=== PATIENT | female | born 1955 | race Caucasian/White ===

== ENCOUNTER 2017-03-08 07:20 | Emergency (ER) | payer OTHER ==
[2017-03-08 07:23] VITALS: BP 146/67; PULSE 112; RESP 20; TEMP 98.8; O2SAT 94
[2017-03-08 07:45] VITALS: BP 167/78; PULSE 107; RESP 22; O2SAT 97
--- NOTE | 2017-03-08 07:48 | PD ---
HPI Chief Complaint: cough Time Seen by Provider: 07:32 Travel History International Travel<30 days: No Contact w/Intl Traveler<30days: No History of Present Illness HPI 61-year-old female presents with productive cough that developed over the weekend after she had a patient with productive cough that coughed and her face while she was at work a couple days before this. She states her cough has progressed and she has just been generally ill feeling so she elected to check and given a couple years ago she had pneumonia. She states since then she has quit smoking. She denies any fever or other significant complaints other than sometimes it hurts when she coughs. She states no specific modifying factors otherwise. She states she worked overnight in [employer] and took her medication in the evening. She states she is known to have tachycardia and that is why she is on the Cardizem but no history of atrial fibrillation. Quality is productive. Severity is frequent per patient. PFSH Past Medical History Hypertension: Yes (and sinus tachycardia) Past Surgical History Section: Yes Social History Alcohol Use: No Tobacco Use: No (quit couple years ago) Substance Use: No Allergies-Medications (Allergen,Severity, Reaction): Coded Allergies: No Known Allergies (Unverified , 03/08/17) Review of Systems Except as stated in HPI: all other systems reviewed are Neg Physical Exam Narrative General: No apparent distress, well appearing ENT: mmm Neck: Neck is supple, no meningeal signs, trachea is midline Cardiovascular: Regular rate and rhythm Lungs: No increased respiratory effort noted, CTA bilaterally Extremities: No edema Neuro: Awake, motor and sensation grossly intact, normal speech Data Data Last Documented VS Vital Signs Date Time Temp Pulse Resp B/P (MAP) Pulse Ox O2 Delivery O2 Flow Rate FiO2 03/08/17 08:00 102 20 97 Room Air 03/08/17 08:00 167/78 (107) 03/08/17 07:23 98.8 Orders Orders Chest, Pa & Lat (03/08/17 ) [facility] Medical Decision Making Medical Screen Exam Complete: Yes Emergency Medical Condition: Yes Medical Record Reviewed: Yes (past history confirmed) Interpretation(s) cxr no acute Differential Diagnosis Pneumonia, URI, costochondritis Narrative Course Lengthy discussion with patient and she agrees to limited workup with chest x- ray and reevaluation cxr no acute, Patient denies any new complaints and agrees to no further testing here and likely viral infection. Patient happy with care, all questions answered. Patient knows that follow up is incumbent on them and to return to the emergency room immediately if new or worsening symptoms develop. Patient given strict return precautions, vitals reviewed and are normal, agrees to further workup as an outpatient. Diagnosis Primary Impression: Upper respiratory infection Qualified Codes: J06.9 - Acute upper respiratory infection, unspecified Patient Instructions: General Instructions, Moderate Sedation in Children (ED) Additional Instructions: return as needed, follow with primary for recheck, continue supportive care Med/Other Pt SpecificInfo: No Change to Meds Disposition: 01 DISCHARGE HOME Condition: Stable Pretty Elmore MD Mar 08, 2017 07:48
[2017-03-08 08:00] VITALS: BP 167/78; PULSE 102; RESP 22; O2SAT 97
--- NOTE | 2017-03-08 09:19 | RADRPT ---
EXAM DATE/TIME: 03/08/2017 08:09 [place] COMPARISON: No previous studies available for comparison. INDICATIONS : Productive cough for four days. Chest pain when coughing. MEDICAL HISTORY : Hypertension. SURGICAL HISTORY : None. ENCOUNTER: Initial ACUITY: 4 - 6 days PAIN SCORE: 4/10 LOCATION: Bilateral chest FINDINGS: PA and lateral views of the chest demonstrate the lungs to be symmetrically aerated without evidence of mass, infiltrate or effusion. The cardiomediastinal contours are unremarkable. Osseous structure s are intact. CONCLUSION: No acute disease. Emir Guevara Jr., MD on March 08, 2017 at 9:12 Board Certified Radiologist. This report was verified electronically.
[2017-03-08 09:58] VITALS: BP 137/78
== END 2017-03-08 09:59 | disposition home or self-care (01) ==
LOC: NEPE 07:20
DX: J06.9 Acute upper respiratory infection, unspecified (principal); Z87.891 Personal history of nicotine dependence
CPT/HCPCS: 71020; 99283